=== PATIENT | female | born 1960 | race Caucasian/White ===

== ENCOUNTER 2017-05-16 13:03 | Emergency (ER) | payer OTHER, BC ==
[2017-05-16 13:30] VITALS: RESP 16; TEMP 97.4
[2017-05-16 14:43] VITALS: BP 150/90; PULSE 82; O2SAT 96
== END 2017-05-16 14:39 | disposition home or self-care (01) | DRG 605 ==
LOC: ED 13:03
DX: S51.812A Laceration without foreign body of left forearm, initial encounter (principal); W26.0XXA Contact with knife, initial encounter
CPT/HCPCS: 99284